=== PATIENT | female | born 2000 | race Caucasian/White ===

== ENCOUNTER 2025-07-05 14:08 | Emergency (ER) | payer OTHER ==
[2025-07-05 14:32] VITALS: TEMP 98.5
[2025-07-05 14:59] LABS: BASOPHIL % 0.2 % (0.1-1.2); Basophil (Absolute #) 0.01 x10^3/uL (0.01-0.08); Eosinophil (Absolute #) 0.01 x10^3/uL (0.04-0.36); Hematocrit 37.0 % (34.1-44.9); Hemoglobin 12.0 g/dL (11.2-15.7); IMMATURE GRAN # 0.01 x10^3u/L (0.001-0.031); IMMATURE GRAN % 0.2 % (0.001-0.429); Lymphocyte (Absolute #) 0.78 x10^3/uL (1.18-3.74); Mean Corpuscular Hemoglobin 29.1 pg (25.6-32.2); Mean Corpuscular Hgb Concent. 32.4 g/dL (32.2-35.5); Monocyte (Absolute #) 0.39 x10^3/uL (0.24-0.86); NUCLEATED RBC # 0.00 x10^3u/L (0.00-0.012); NUCLEATED RBC % 0.0 % (0.00-0.2); Platelet Count 140 x10^3/uL (182-369); Red Blood Count 4.12 x10^6/uL (3.93-5.22); White Blood Count 4.9 x10^3/uL (3.98-10.04)
[2025-07-05 15:22] LABS: Calcium 9.1 mg/dL (8.4-10.2); Carbon Dioxide 27 mmol/L (22-30); Creatinine 1 0.60 mg/dL (0.52-1.04); EST GLOMERULAR FILTRATION RATE 129.3 ML/MIN; Glucose 115 mg/dL (74-106); Potassium 3.5 mmol/L (3.5-5.1); TROPONIN < 0.012 ng/mL (0.000-0.033)
[2025-07-05 15:34] LABS: INFLUENZA A NEGATIVE (NEGATIVE); INFLUENZA B NEGATIVE (NEGATIVE); RESPIRATORY SYNCTIAL VIRUS NEGATIVE (NEGATIVE); SARS-CoV-2 Xpert Express NEGATIVE (NEGATIVE)
[2025-07-05 17:02] VITALS: PULSE 91; O2SAT 99
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
[2025-07-05 18:08] VITALS: BP 111/75; RESP 18
--- NOTE | 2025-07-05 19:43 | XRAY ---
Indication: Short of breath. Comparison: None Portable chest demonstrates normal heart and lungs. Bony thorax intact with old left clavicle fracture.
== END 2025-07-05 18:18 | disposition home or self-care (01) ==
LOC: ED 14:08
DX: R06.02 Shortness of breath (principal); F41.1 Generalized anxiety disorder; D69.6 Thrombocytopenia, unspecified; Z79.899 Other long term (current) drug therapy; Z59.89 Other problems related to housing and economic circumstances

== ENCOUNTER 2025-07-31 00:48 | Emergency (ER) | payer OTHER | END 2025-07-31 00:49 | disposition left against medical advice (07) | LOC: ED 00:48 | DX: Z53.21 Procedure and treatment not carried out due to patient leaving prior to being seen by health care provider (principal) ==